=== PATIENT | female | born 1980 | race African-American/Black ===

== ENCOUNTER 2022-08-12 11:00 | Emergency (ER) | payer BC, OTHER ==
[~2022-08-12] VITALS: Ht 170.2 cm; Wt 55.3 kg
[2022-08-12] MEDS ORDERED: predniSONE 20 MG TABLET ONE (11:54)
[2022-08-12] MEDS ORDERED: IPRATROPIUM NEB FS 0.5 MG/2.5 ML AMPUL.NEB ONE (11:55)
[2022-08-12] MEDS ORDERED: ALBUTEROL FS 2.5 MG/3 ML VIAL.NEB ONE (11:55)
--- NOTE | 2022-08-12 11:58 | NUR ---
RT AT BEDSIDE FOR BREATHING TX
--- NOTE | 2022-08-12 11:58 | NUR ---
PREDNISONE PO GIVEN INDICATED, YARITZA WELL
[2022-08-12] MEDS ORDERED: predniSONE 20 MG TABLET PO ONE (12:00)
[2022-08-12] MEDS ORDERED: ALBUTEROL FS 2.5 MG/3 ML VIAL.NEB NEB ONE (12:00)
[2022-08-12] MEDS ORDERED: IPRATROPIUM NEB FS 0.5 MG/2.5 ML AMPUL.NEB NEB ONE (12:00)
--- NOTE | 2022-08-12 12:30 | NUR ---
RAD TAKEN XRAY OF PT
[2022-08-12] MEDS ORDERED: ALBU18HF2 INH (14:00)
[2022-08-12] MEDS ORDERED: PRED20TA PO (14:00)
--- NOTE | 2022-08-12 14:13 | NUR ---
Patient discharged to home in stable condition. Written and verbal after care instructions given. Patient verbalizes understanding of instruction.
[2022-08-12 14:14] VITALS: BP 128/79
== END 2022-08-12 14:14 | disposition home or self-care (01) ==
LOC: ER 11:06
DX: J06.9 Acute upper respiratory infection, unspecified (principal); J98.01 Acute bronchospasm; Z60.2 Problems related to living alone
CPT/HCPCS: 99285; 71045; 94640; J7512